=== PATIENT | male | born 1945 | race Caucasian/White ===

== ENCOUNTER 2021-08-19 08:16 | Emergency (ER) | payer OTHER ==
[~2021-08-19] VITALS: Ht 175.3 cm; Wt 88.5 kg
[~2021-08-19 08:16] MED LIST: Hytrin1 MG PO; OMEPRAZOLE DR 20 MG PO; ZESTORETIC 20-121 EA PO
[2021-08-19] MEDS ORDERED: INDO50 PO (08:57)
[2021-08-19] MEDS ORDERED: PRED20 PO (08:57)
== END 2021-08-19 09:10 | disposition home or self-care (01) ==
LOC: ER 08:16
DX: M79.675 Pain in left toe(s) (principal); E11.9 Type 2 diabetes mellitus without complications; I10 Essential (primary) hypertension; Z79.899 Other long term (current) drug therapy
CPT/HCPCS: A9270

== ENCOUNTER 2021-12-27 10:44 | Day surgery (SDC) | payer OTHER ==
[~2021-12-27] VITALS: Ht 175.3 cm; Wt 87.8 kg
[~2021-12-27 10:44] MED LIST changes: +INDO50 PO; +PRED20 PO
[2021-12-27] MEDS ORDERED: WEGOVY0.25 MG/0. (11:05)
[2021-12-27] MEDS ORDERED: TAMS.4ER (11:05)
[2021-12-27] MEDS ORDERED: [UNRECOGNIZED DRUG - OTHER] (11:05)
--- NOTE | 2021-12-27 13:02 | NUR ---
12/27/21 1302 MANGO CHÁVEZ 1241 PROCEDURAL TIME OUT FOR NERVE BLOCK WITH MELODY WERNER, DR FERNÁNDEZ, DR CROWELL IN ROOM. PT ON CONTINIOUS PULSE OXIMETRY. PT TOLERATED NERVE BLOCK WELL.
--- NOTE | 2021-12-27 13:44 | NUR ---
12/27/21 1344 Briana Young RED RASH NOTED IN AXILLA. 0.25ML OF EPI 1MG/ML ADDED TO 50ML OF NACL TO CREATE A ;LOCAL SOLUTION OF NACL WITH EPI 1:200,000. 1MG EPI ADDED TO FIRST 3 BAGS OF LR USED FOR JOINT IRRIGATION.
--- NOTE | 2021-12-27 14:48 | NUR ---
12/27/21 1448 MILAGRO MAURICE O2 TRIAL- NOW 5L
--- NOTE | 2021-12-27 15:28 | NUR ---
12/27/21 1528 MILAGRO MAURICE PT SITTING IN RECLINER EATING AND DRINKING W/O DIFFICULTY. IS SITTING BESIDE HIM. PT PAIN 5/10. PERCOCET 5/325MG PO AND 25MCG FENTANYL GIVEN AT THIS TIME. BP 138/64 O2 95% AND POULSE 71
== END 2021-12-27 16:26 | disposition home or self-care (01) ==
LOC: ORSCSDS 10:44
PROVIDERS: Orthopaedic Surgery
PROC: 0LM14ZZ Reattachment of Right Shoulder Tendon, Percutaneous Endoscopic Approach (ICD-10-PCS; principal; 2021-12-27 12:00)
PROC: 0RNJ4ZZ Release Right Shoulder Joint, Percutaneous Endoscopic Approach (ICD-10-PCS; principal; 2021-12-27 12:00)
DX: M75.121 Complete rotator cuff tear or rupture of right shoulder, not specified as traumatic (principal); S46.119A Strain of muscle, fascia and tendon of long head of biceps, unspecified arm, initial encounter; M71.9 Bursopathy, unspecified; M75.41 Impingement syndrome of right shoulder; W11.XXXA Fall on and from ladder, initial encounter; I10 Essential (primary) hypertension; E11.9 Type 2 diabetes mellitus without complications; G47.33 Obstructive sleep apnea (adult) (pediatric); K21.9 Gastro-esophageal reflux disease without esophagitis; Z79.899 Other long term (current) drug therapy
CPT/HCPCS: 82947; A9270; C1713; J0171; J0690; J1100; J2250; J2405; J2704; J2710; J3010; J7120